=== PATIENT | male | born 2000 | race Caucasian/White ===

== ENCOUNTER 2024-02-04 16:05 | Emergency (ER) | payer OTHER, SELFPAY ==
[2024-02-04 16:14] VITALS: BP 119/65; PULSE 75; RESP 16; TEMP 36.6; O2SAT 97; BMI 21.6
--- NOTE | 2024-02-04 16:16 | ED_ITS ---
HPI - General Adult General Chief complaint: Urogenital-Male Stated complaint: Chlamydia and Gonorrhead, needs meds Time Seen by Provider: 02/04/24 16:32 History of Present Illness HPI narrative: Patient tested positive for gonorrhea, he brings the paper from his primary doctor, negative for chlamydia, his symptoms were a discharge for several days before he saw his doctor, denies any discomfort now and he is here for treatment Related Data Allergies Allergy/AdvReac Type Severity Reaction Status Date / Time amoxicillin Allergy Unknown Anaphylaxis Verified 02/04/24 16:17 Penicillins Allergy Anaphylaxis Verified 02/04/24 16:17 [facility] Past Medical History Source: nursing notes reviewed Social History Social History Advance Directives: No Advance Directives Information Provided: No Physical Exam ED Vital Signs: Vital Signs - 24 hr 02/04/24 16:14 02/04/24 17:58 Temperature 97.8 F Pulse Rate 75 68 Respiratory Rate 16 Blood Pressure 119/65 Pulse Oximetry 97 Oxygen Delivery Method Room Air BMI result Body Mass Index 21.6 General appearance is no acute distress Neck is supple Respiratory no distress Extremities full range motion x4 Course Course Course Narrative: This is a Rapid Medical Examination (RME) performed by Korey Larose PA-C in triage. Full HPI, ROS, assessment and treatment plan per primary provider in the Main ED. 23 yo male here requesting STD treatment. patient reports testing positive for CT/NG at his pediatricians office. has anaphylactic reaction to penicillins. was advised to go to [facility] to receive [facility]in injection however [facility] does not carry this medication. endorses penile discharge. denies fever/ chills. Plan: med administration Patient had genital exam at his primary doctor's office which he said he was told was normal and does not want to repeat it here he has no testicular pain denies any source discharge or lesions now He was given Rocephin 500 for his gonorrhea was observed for half an hour after injection with no sign of allergic reaction and discharged Medications Administered Discontinued Medications Generic Name Dose Route Start Last Admin Trade Name Freq PRN Reason Stop Dose Admin Ceftriaxone Sodium 250 mg/ 0 mg 02/04/24 17:18 02/04/24 17:34 Lidocaine HCl 0.9 ml IM 02/04/24 17:19 1 kit ONCE ONE Administration Discharge Plan Discharge Clinical Impression: Gonorrhea Patient Disposition: Home, Self-Care Additional Instructions: Your paperwork showed your positive for gonorrhea and negative for chlamydia We treated for gonorrhea with Rocephin 500 mg You should refrain from sex until retested and all symptoms are gone and repeat test is negative No sex until your partner is tested and treated if necessary Return any time any concerns Print Language: Vietnamese
--- NOTE | 2024-02-04 17:31 | PC.NURSE ---
Pt HR rechecked @1720 patient states I ate a ton of edibles and that's why his HR might be high. Pt states he can't remember the exact amount.
[2024-02-04] MEDS: cefTRIAXone sodium 250 MG, Lidocaine HCl 1 % MPF 0.9 ML IM (17:34)
[2024-02-04 17:58] VITALS: PULSE 68
[2024-02-04 18:26] VITALS: BP 119/65; PULSE 68; RESP 18; TEMP 36.6; O2SAT 97
== END 2024-02-04 18:27 | disposition home or self-care (01) ==
PROVIDERS: Emergency Provider Emergency Medicine; PCP Pediatrics
DX: A54.09 Other gonococcal infection of lower genitourinary tract (principal)
CPT/HCPCS: 96372; 99282; 99284; J0696